=== PATIENT | male | born 1995 | race African-American/Black ===

== ENCOUNTER 2019-06-29 17:32 | Emergency (ER) | payer MEDICAID ==
[~2019-06-29] VITALS: Ht 180.3 cm; Wt 68.0 kg
[2019-06-29 17:40] VITALS: BP 131/72
[2019-06-29] MEDS ORDERED: cefTRIAXone 250 MG in LIDOCAINE MPF 1% 0.9 ML IM ONE (18:00)
[2019-06-29] MEDS ORDERED: AZITHROMYCIN 250 MG TAB PO ONE (18:00)
--- NOTE | 2019-06-29 18:07 | NUR ---
PT BIB SELF W C/O BURNING UPON URINATION X4 DAYS. RATES PAIN @ 6/10 WITH URINATION. DENIES FREQUENCY, HEMATURIA, URGENCY @ THIS TIME. NO ABDOMINAL DISTENTION OR PAIN UPON PALPATION. BOWEL SOUNDS ACTIVE X4. LBM 06/29/19, WNL. ER TO SEE PT. PMH-NONE. ALLERGIES-NONE. MEDS TAKEN-NONE.
[2019-06-29 18:39] LABS: BILIRUBIN,URINE NEGATIVE (NEGATIVE); BLOOD, URINE TRACE-I (NEGATIVE); COLOR,URINE YELLOW (YELLOW); LEUKOCYTE ESTERASE ,URINE 2+ (NEGATIVE); NITRITE, URINE NEGATIVE (NEGATIVE); PH,URINE 5.5 (5.0-9.0); UGLUCOSE NEGATIVE (NEGATIVE)
[2019-06-29 18:41] LABS: APPEARANCE,URINE CLOUDY (CLEAR)
[2019-06-29 18:53] LABS: RBC,URINE 0-5 /HPF (0-5); WBC,URINE TOO MANY TO COUNT /HPF (0-5)
[2019-06-29 19:02] VITALS: BP 131/72
[2019-07-03 06:07] LABS: CHLAMYDIA TRACHOMATIS AMP DNA Negative (Negative)
== END 2019-06-29 18:59 | disposition home or self-care (01) ==
LOC: MED 17:32
DX: N39.0 Urinary tract infection, site not specified (principal); Z11.3 Encounter for screening for infections with a predominantly sexual mode of transmission
CPT/HCPCS: 36415; 81001; 87086; 96372; 99283; J0696; J2001

== ENCOUNTER 2019-07-10 15:44 | Emergency (ER) | payer MEDICAID ==
[~2019-07-10] VITALS: Ht 180.3 cm; Wt 68.0 kg
[2019-07-10 16:08] VITALS: BP 122/54
--- NOTE | 2019-07-10 16:10 | NUR ---
PATIENT PRESENTS TO ED WITH SHARP, 5/10 RIGHT-SIDED HEADACHE X 1 DAY. DENIES NAUSEA AND VOMITING. DENIES INJURY. -BOV, LOC, FEVER, COUGH, COLDS. PERRL 3MM. AMBULATORY WITH STEADY GAIT. VSS; PATIENT POSITIONED FOR COMFORT; HOB ELEVATED; BEDRAILS UP X2; BED DOWN. ER MD MADE AWARE OF PT STATUS. PMH: BRONCHITIS MEDS: NONE NKA
[2019-07-10 16:11] VITALS: BP 122/54
--- NOTE | 2019-07-10 17:44 | NUR ---
PATIENT LEFT WITHOUT BEING SEEN.
== END 2019-07-10 17:44 | disposition left against medical advice (07) ==
LOC: MED 15:44
DX: R51 Headache (principal); Z53.21 Procedure and treatment not carried out due to patient leaving prior to being seen by health care provider

== ENCOUNTER 2019-09-10 18:10 | Emergency (ER) | payer MEDICAID ==
[~2019-09-10] VITALS: Ht 180.3 cm; Wt 68.0 kg
[2019-09-10 18:16] VITALS: BP 130/71
--- NOTE | 2019-09-10 19:05 | NUR ---
24 Y/O M C/C RUE PAIN 10/10 TINGLING SENSATION X 2 DAYS. PT DENIES TRAUMA, DOES NOT KNOW WHY IS HURTING. PT HAS NOT TAKEN ANY OTC RX. PT NKA. NO HX. NO RX. NO N/V/D.
--- NOTE | 2019-09-10 19:11 | NUR ---
REPORT GIVEN TO KENNY PERLA FOR CONTINUITY OF CARE
--- NOTE | 2019-09-10 19:24 | NUR ---
ASSUMED CARE OF PT. PT APPEARS TO BE IN NO DISTRESS AT THIS TIME. VSS. WILL CONTINUE TO MONITOR. NO CHANGES FROM PREVIOUS ASSESSMENT.
--- NOTE | 2019-09-10 20:01 | NUR ---
Patient discharged with v/s stable. Written and verbal after care instructions given and explained. Patient alert, oriented and verbalized understanding of instructions. Ambulatory with steady gait. All questions addressed prior to discharge. ID band removed. Patient advised to follow up with PMD. Rx of KEFLEX, BACITRACIN, MOTRIN given. Patient educated on indication of medication including possible reaction and side effects. Opportunity to ask questions provided and answered.
[2019-09-10 20:02] VITALS: BP 126/68
== END 2019-09-10 20:01 | disposition home or self-care (01) ==
LOC: MED 18:10
DX: L03.113 Cellulitis of right upper limb (principal)
CPT/HCPCS: 99283

== ENCOUNTER 2022-04-24 20:03 | Emergency (ER) | payer MEDICAID ==
[~2022-04-24] VITALS: Ht 180.3 cm; Wt 78.9 kg
[2022-04-24 20:07] VITALS: BP 142/79
--- NOTE | 2022-04-24 20:17 | NUR ---
TO LOBBY FOLLOWING TRIAGE
[2022-04-24] MEDS ORDERED: NAPR-54 PO (20:59)
[2022-04-24] MEDS ORDERED: ACET-8386 PO (21:00)
--- NOTE | 2022-04-24 21:05 | NUR ---
Patient discharged with v/s stable. Written and verbal after care instructions given. Patient alert, oriented and verbalized understanding of instructions. Ambulatory with steady gait. All questions addressed prior to discharge. ID band removed. Patient advised to follow up with PMD. Rx of Naproxen and Hydrocodone-Acetaminophen given. Opportunity to ask questions provided and answered. DISCHARGE INSTRUCTIONS GIVEN BY DR. THOMAS.
== END 2022-04-24 21:05 | disposition home or self-care (01) ==
LOC: MED 20:03
DX: M54.50 Low back pain, unspecified (principal)
CPT/HCPCS: 99283